=== PATIENT | male | born 1975 | race Two or more races ===

== ENCOUNTER 2023-10-08 13:32 | Emergency (ER) | payer OTHER ==
[~2023-10-08] VITALS: Ht 177.8 cm; Wt 79.4 kg
[2023-10-08] MEDS ORDERED: CYCLOBENZAPRINE 10 MG TABLET ONE (14:37)
[2023-10-08] MEDS ORDERED: ACETAMINOPHEN ES 500 MG TABLET ONE (14:37)
[2023-10-08] MEDS: CYCLOBENZAPRINE 10 MG TABLET PO ONE (14:38)
[2023-10-08] MEDS: ACETAMINOPHEN ES 500 MG TABLET PO ONE (14:38)
[2023-10-08] MEDS ORDERED: IBUPROFEN 400 MG TABLET ONE (14:38)
[2023-10-08] MEDS: IBUPROFEN 400 MG TABLET PO ONE (14:38)
[2023-10-08] MEDS ORDERED: IBUP-1957 PO (15:03)
[2023-10-08] MEDS ORDERED: CYCL10TA9 PO (15:03)
[2023-10-08] MEDS ORDERED: ACET-2605 PO (15:03)
[2023-10-08 15:13] VITALS: BP 130/75; TEMP 98; O2SAT 99
== END 2023-10-08 15:13 | disposition home or self-care (01) ==
LOC: ER 13:39
DX: S39.012A Strain of muscle, fascia and tendon of lower back, initial encounter (principal); M62.830 Muscle spasm of back; X50.0XXA Overexertion from strenuous movement or load, initial encounter; Y93.89 Activity, other specified; Y92.89 Other specified places as the place of occurrence of the external cause; Y99.0 Civilian activity done for income or pay

== ENCOUNTER 2024-01-13 02:47 | Emergency (ER) | payer MEDICAID, OTHER ==
[~2024-01-13] VITALS: Ht 172.7 cm; Wt 86.2 kg
[2024-01-13 02:47] VITALS: BP 147/98; TEMP 98
[~2024-01-13 02:47] MED LIST: ACET-2605 PO; CYCL10TA9 PO; IBUP-1957 PO
[2024-01-13] MEDS ORDERED: DOXY100T2 PO (03:19)
[2024-01-13] MEDS ORDERED: CEFTRIAXONE 500 MG VIAL ONE (03:25)
[2024-01-13] MEDS ORDERED: LIDOCAINE 0.5% HCL 50 ML VIAL ONE (03:26)
[2024-01-13] MEDS ORDERED: LIDOCAINE 1% INJ 50 ML MDV IJ ONE (03:28)
[2024-01-13] MEDS: CEFTRIAXONE 500 MG VIAL IM ONE (03:48)
[2024-01-13 06:18] VITALS: O2SAT 98
[2024-01-15 22:11] LABS: CHLAMYDIA TRACHOMATIS NAA Negative (Negative); NEISSERIA GONORRHOEAE NAA Negative (Negative)
== END 2024-01-13 06:19 | disposition home or self-care (01) ==
LOC: ER 02:55
DX: Z20.89 Contact with and (suspected) exposure to other communicable diseases (principal); Z79.1 Long term (current) use of non-steroidal anti-inflammatories (NSAID); Z79.899 Other long term (current) drug therapy
CPT/HCPCS: 99283; 96372; 87491; 87591; J3490 ×2; J0696